=== PATIENT | male | born 1980 | race Caucasian/White ===

== ENCOUNTER 2019-01-02 01:25 | Inpatient (IN) ==
[2019-01-02] MEDS ORDERED: Ketorolac 30 MG/ML VIAL IVP ONE (04:20)
[2019-01-02] MEDS ORDERED: OXYCODONE Oral CONC 10 MG/0.5 ML ORAL.SYG SL PRN (04:44)
[2019-01-02] MEDS ORDERED: Naloxone 0.4 MG/ML INJ IVP PRN ×2 (04:44→18:57)
[2019-01-02] MEDS ORDERED: Ketorolac 30 MG/ML VIAL IVP PRN (04:44)
--- NOTE | 2019-01-02 05:04 | Internal Med History&Physical ---
Date of Encounter: 01/02/19 Time of Encounter: 05:01 Internal Medicine - H&P: HPI Chief complaint: abdominal painn Admitted From: Home Plans for Post Hospital Care: Home () History of present illness: Aaron Crockett is a 38-year-old male who reports a history of kidney stones in the past that required lithotripsy and stent placement presenting now on transfer from [facility] where he went to with 3 days of abdominal pain that was initially diffuse and subsequently localized to his lower pelvis. This was also associated with rectal tenesmus, constipation, dark urine and reduced urine output. He denied nausea, vomiting, fever or chills. At [facility] CAT scan was done which revealed a 7-8 mm left ureteral stone with concomitant moderate hydronephrosis. Lab work was grossly unremarkable and he was transferred here for further care. Past Med Surg Social Fam HX - Past Medical History Medical history: asthma, fibromyalgia, GERD Additional medical history: ulcers, crohn's disease - RLS Psychiatric history: no psych history - Past Surgical History Surgical History: non-contributory Additional surgical history: colonoscopy - kidney stones removed 5-6 times - liver bx - Social History Smoking Status: Never smoker Smokeless Tobacco Status: No Alcohol use: none Drug use: none - Family History Mother Hx Family Cardiac Disorders: Yes Father Hx Family Cardiac Disorders: Yes Internal Medicine - H&P: Meds Allergy/AdvReac Type Severity Reaction Status Date / Time aspirin [ASA] Allergy Itching Verified 06/11/15 10:23 ropinirole [From Requip] Allergy Swelling Verified 02/21/16 07:39 of Lip/Tongue/Throat All Systems PM: A 10-system review of systems was performed and is negative for pertinent findings except as documented above in the HPI. - Constitutional Vitals: Temp Pulse Resp BP Pulse Ox 97.5 F L 61 18 133/86 95 01/02/19 03:20 01/02/19 03:20 01/02/19 03:20 01/02/19 03:20 01/02/19 03:20 Exam: Vitals: Reviewed General: Obese white male lying comfortably in bed in no acute distress. Skin: Warm and supple. HEENT: Moist mucous membranes. No conjunctivae pallor. Neck: No lymphadenopathy. No JVD. No carotid bruits. No palpable thyroid. Chest: Normal thoracic expansion. Normal breath sounds. Clear to auscultation. Heart: Normal S1 & S2; rhythmic. No rubs or murmurs. Abdomen: Obese, soft and mildly to palpation in the left lower quadrant. No peritoneal reaction. Extremities: No clubbing, cyanosis or edema. No calf tenderness. Normal distal pulses. Neurological: Awake, alert and oriented to person, place and time. No focal deficits. Psych: Affect appropriate. - Assessment and Plan (1) Ureteral stone with hydronephrosis Current Visit: Yes Status: Acute Assessment and plan: Will place on IVF, provide pain control and start tamsulosin. No signs of infection present based on studies done at [facility] and his clinical presentation therefore no antibiotics at this time. Will obtain a repeat set of labs here and urine test for our evaluation. Urology consult has been requested; will keep NPO in the interim. (2) Obesity Current Visit: Yes Status: Acute Assessment and plan: Education on therapeutic lifestyle changes were given. Qualifiers: Obesity type: due to excess calories Obesity classification: adult class 2 (BMI 35 - 39.9) Serious obesity comorbidity presence: unspecified whether serious comorbidity present Body mass index: BMI 39.0-39.9 Qualified Code(s): E66.09 - Other obesity due to excess calories; Z68.39 - Body mass index (BMI) 39.0-39.9, adult (3) Asthma Current Visit: Yes Status: Acute Assessment and plan: We will place on nebulizer therapy as needed. Qualifiers: Asthma severity: moderate Asthma persistence: persistent Asthma complication type: uncomplicated Qualified Code(s): J45.40 - Moderate persistent asthma, uncomplicated (4) DVT prophylaxis Current Visit: Yes Status: Acute Assessment and plan: Ambulation for now. - Time Spent With Patient Total time spent is greater than 50% in coordination of care (as documented) at patient's floor/unit and/or counseling patient: Greater than 35 minutes
[2019-01-02 05:06] LABS: Bilirubin,Urine Negative (Negative); Blood,Urine Negative (Negative); Clarity,Urine Clear (Clear); Color,Urine Yellow (Yellow); Glucose,Urine (UA) Normal (Normal); Ketones,Urine Negative (Negative); Leukocyte Esterase,Urine Negative (Negative); Nitrite,Urine Negative (Negative); Protein,Urine Trace mg/dL (Neg-Trace); Specific Gravity,Urine > 1.030 (1.010-1.025); Urobilinogen,Urine Normal (Normal)
[2019-01-02 05:16] LABS: Bacteria,Urine None Seen per hpf (None-Few); Hyaline Casts,Urine None Seen per lpf (None-Few); Squamous Epithelial Cell,Urine Few per lpf (None-Few); WBC,Urine 0-3 per hpf (0-3)
[2019-01-02] MEDS: Ringers Solution, Lactated 1,000 ML IVC SCH (05:48)
[2019-01-02 07:17] LABS: Basophils % 0.2 %; Eosinophils # 0.2 K/mcL (0.0-0.6); Eosinophils % 2.9 %; Hematocrit 42.1 % (37.5-50.1); Hemoglobin 14.3 g/dL (12.9-16.9); Immature Granulocytes % 0.5 % (0-4); Lymphocytes # 1.5 K/mcL (0.6-4.6); Lymphocytes % 27.7 %; Mean Corpuscular Hemoglobin 32.4 pg (28.0-33.3); Mean Corpuscular Volume 95.5 fL (83.0-100.0); Mean Platelet Volume 10.7 fL (9.4-12.4); Monocytes # 0.8 K/mcL (0.0-1.3); Monocytes % 14.6 %; Platelet Count 217 K/mcL (140-400); Red Blood Count 4.41 M/mcL (4.19-5.50); Red Cell Distribution Width 12.6 % (11.5-14.5); Segmented Neutrophils % 54.1 %
[2019-01-02 07:29] LABS: Alanine Aminotransferase 14 Units/L (7-52); Albumin/Globulin Ratio 1.4 (1.1-2.2); Alkaline Phosphatase 45 Units/L (34-104); Aspartate Amino Transferase 15 Units/L (13-39); BUN/Creatinine Ratio 12 (6-26); Bilirubin,Direct 0.1 mg/dL (0.0-0.2); Bilirubin,Indirect 0.7 mg/dL (0.0-1.2); Bilirubin,Total 0.8 mg/dL (0.3-1.0); Blood Urea Nitrogen 18 mg/dL (6-20); Carbon Dioxide 25 mEq/L (23-29); Chloride 104 mEq/L (98-107); Globulin 2.9 g/dL (2.4-3.5); Glucose 89 mg/dL (70-105); Osmolality,Calculated 275 (280-300); Sodium 132 mEq/L (136-145); Total Protein 6.9 g/dL (6.4-8.9); eGFR For Non-African Americans 53 (> 60)
[2019-01-02 07:49] LABS: INR 1.1
[2019-01-02 07:52] LABS: Activated Partial Thrombo Time 31.6 Seconds (26.0-36.0)
--- NOTE | 2019-01-02 07:57 | Internal Med Progress Note ---
Hospitalist Progress Note - Encounter Date of Encounter: 01/02/19 Time of Encounter: 11:30 - Subjective Interval History: No acute events. Denies fevers/chills. Abdominal pain currently controlled. - Exam Vitals: Temp Pulse Resp BP Pulse Ox 97.7 F 62 18 134/68 93 01/02/19 06:49 01/02/19 06:49 01/02/19 06:49 01/02/19 06:49 01/02/19 06:49 Exam: General: No acute distress Skin: Warm and supple. HEENT: Moist mucous membranes. No conjunctivae pallor. Neck: No lymphadenopathy. No JVD. No carotid bruits. No palpable thyroid. Chest: Normal thoracic expansion. Normal breath sounds. Clear to auscultation. Heart: Normal S1 & S2; rhythmic. No rubs or murmurs. Abdomen: Obese, soft and mildly to palpation in the left lower quadrant. No peritoneal reaction. Extremities: No clubbing, cyanosis or edema. No calf tenderness. Normal distal pulses. - Assessment and Plan (1) Ureteral stone with hydronephrosis Current Visit: Yes Status: Acute Assessment and Plan: Continue IV fluids and Flomax No signs of infection present based on studies done at [facility] and his clinical presentation therefore no antibiotics at this time. Urology consult has been requested; will keep NPO in the interim. (2) Obesity Current Visit: Yes Status: Acute Assessment and Plan: Education on therapeutic lifestyle changes were given. (3) Asthma Current Visit: Yes Status: Acute Assessment and Plan: We will place on nebulizer therapy as needed. (4) DVT prophylaxis Current Visit: Yes Status: Acute Assessment and Plan: Ambulation for now. (5) CKD (chronic kidney disease), stage III Current Visit: Yes Status: Acute Assessment and Plan: This appears to be patient baseline since April 2018. Medications will be renally dosed and will avoid chronic NSAIDs for pain, will continue prn oxy for now. Recheck labs in AM to see if there is improvement post procedure and/or after IV fluid administration. - Time Spent with Patient Total time spent is greater than 50% in coordination of care (as documented) at patient's floor/unit and/or counseling patient: Internal Medicine: Result - Labs CBC & Chem 7: 01/02/19 06:57 01/02/19 06:57 Labs: Short CBC 01/02/19 Range/Units 06:57 WBC 5.6 (4.3-11.1) K/mcL Hgb 14.3 (12.9-16.9) g/dL Hct 42.1 (37.5-50.1) % Plt Count 217 (140-400) K/mcL Neutrophils # 3.0 (1.6-8.9) K/mcL BMP 01/02/19 06:57 Sodium 132 L Potassium 4.0 Chloride 104 Carbon Dioxide 25 BUN 18 Creatinine 1.48 H Glucose 89 Calcium 9.0 Liver Function 01/02/19 Range/Units 06:57 Total Bilirubin 0.8 (0.3-1.0) mg/dL Direct Bilirubin 0.1 (0.0-0.2) mg/dL AST 15 (13-39) Units/L ALT 14 (7-52) Units/L Alkaline Phosphatase 45 (34-104) Units/L Albumin 4.0 (3.5-5.7) g/dL Urine 01/02/19 Range/Units 04:51 Urine Color Yellow (Yellow) Urine Clarity Clear (Clear) Urine pH 6.0 (5.0-8.0) pH Units Ur Specific [place] > 1.030 H (1.010-1.025) Urine Protein Trace (Neg-Trace) mg/dL Urine Glucose (UA) Normal (Normal) mg/dL Consult Discharge Plan - Plan Referrals: Robert Rhodes DO [Primary Care Provider] - (2) Obesity Qualifiers: Obesity type: due to excess calories Obesity classification: adult class 2 (BMI 35 - 39.9) Serious obesity comorbidity presence: unspecified whether serious comorbidity present Body mass index: BMI 39.0-39.9 Qualified Code(s): E66.09 - Other obesity due to excess calories; Z68.39 - Body mass index (BMI) 39.0-39.9, adult (3) Asthma Qualifiers: Asthma severity: moderate Asthma persistence: persistent Asthma complication type: uncomplicated Qualified Code(s): J45.40 - Moderate persistent asthma, uncomplicated
--- NOTE | 2019-01-02 08:50 | Urology - Consult Note ---
<Desirae Prabhakar N - Last Filed: 01/02/19 08:47> Date of Encounter: 01/02/19 Time of Encounter: 08:00 - Assessment and Plan (1) Ureteral stone with hydronephrosis Current Visit: Yes Status: Acute Assessment and plan: Patient is a 38-year-old male who presents with the history of a 7-8 mm left ureteral stone and hydronephrosis. Discussed surgical risks and benefits with patient. Patient verbalized understanding, and consent has been signed. Patient is prepared undergo a left ureteroscopic stone extraction with holmium laser lithotripsy, basket retrieval and left ureteral stent placement. Patient will remain nothing by mouth and anticipate surgery later today with Dr. Simons. Urology CN:HPI Consult date: 01/02/19 Reason for consult Urology: Other (left ureteral stone) History of present illness: Patient is a 38-year old male who presents with a 7-8mm left ureteral stone. Patient reports a 3 day history of abdominal pain and left lower quadrant pain. Patient initially presented to [facility] and was subsequently transferred to [facility] for urologic intervention. Patient has a long-standing history of renal stones with his last stone occurring approximately 10 years ago. Patient has undergone ureteroscopy and ESWL in the past and states he has always been unsuccessful with attempting medical expulsion. Patient admits to abdominal pain being accompanied with nausea, but he denies any vomiting, fever, chills, gross hematuria, dysuria. Patient has a significant family history of renal stones through his father. Patient has undergone a CT of the abdomen and pelvis suggesting a 7-8 mm left ureteral stone. Past Med Surg Social Fam HX - Past Medical History Medical history: asthma, fibromyalgia, GERD Additional medical history: ulcers, crohn's disease - RLS Psychiatric history: no psych history - Past Surgical History Surgical History: non-contributory Additional surgical history: colonoscopy - kidney stones removed 5-6 times - liver bx - Social History Smoking Status: Never smoker Smokeless Tobacco Status: No Alcohol use: none Drug use: none - Family History Mother Hx Family Cardiac Disorders: Yes Father Hx Family Cardiac Disorders: Yes Medications and Allergies Allergy/AdvReac Type Severity Reaction Status Date / Time aspirin [ASA] Allergy Itching Verified 06/11/15 10:23 ropinirole [From Requip] Allergy Swelling Verified 02/21/16 07:39 of Lip/Tongue/Throat Review of Systems - Constitutional no chills, no fatigue, no fever(s) - EENT Nose, mouth and throat: no dizziness, no headache(s) - Cardiovascular no chest pain, no diaphoresis, no dyspnea - Respiratory no cough, no dyspnea - Gastrointestinal nausea, no abdominal pain, no vomiting - Genitourinary flank pain, no change in urinary stream, no difficulty urinating, no dysuria, no hematuria, no urinary frequency, no urinary hesitancy, no urinary incontinence, no urinary urgency - Musculoskeletal back pain, no muscle weakness - Integumentary no erythema, no rash, no swelling - Neurological no confusion, no syncope - Psychiatric no anxiety, no confusion - Hematologic/Lymphatic no easy bleeding, no easy bruising - Allergic/Immunologic no throat swelling, no wheezing Exam Initial Vital Signs Temp Pulse Resp BP Pulse Ox 97.5 F L 61 18 133/86 95 01/02/19 03:20 01/02/19 03:20 01/02/19 03:20 01/02/19 03:20 01/02/19 03:20 - General physical appearance Present: well developed, no distress, no pain - Eyes Present: PERRL, normal ocular movement - ENT Present: normal nares, no congestion - Neck Present: no masses, trachea midline - Abdomen Abdomen: Present: soft, non tender - Integumentary Present: no rash, no abnormal pigmentation - Neurologic Present: normal coordination Urology Results - Labs 01/02/19 06:57 01/02/19 06:57 Abnormal lab results Sodium 132 mEq/L (136-145) L 01/02/19 06:57 Creatinine 1.48 mg/dL (0.70-1.30) H 01/02/19 06:57 Est GFR (Non-Af Amer) 53 (> 60) L 01/02/19 06:57 Calculated Osmolality 275 (280-300) L 01/02/19 06:57 Ur Specific [place] > 1.030 (1.010-1.025) H 01/02/19 04:51 Urine Microscopic RBC 3-5 per hpf (0-3) H 01/02/19 04:51 Diabetes panel 01/02/19 Range/Units 06:57 Sodium 132 L (136-145) mEq/L Potassium 4.0 (3.5-5.1) mEq/L Chloride 104 (98-107) mEq/L Carbon Dioxide 25 (23-29) mEq/L BUN 18 (6-20) mg/dL Creatinine 1.48 H (0.70-1.30) mg/dL Glucose 89 (70-105) mg/dL Calcium 9.0 (8.6-10.3) mg/dL AST 15 (13-39) Units/L ALT 14 (7-52) Units/L Alkaline Phosphatase 45 (34-104) Units/L Albumin 4.0 (3.5-5.7) g/dL Calcium panel 01/02/19 Range/Units 06:57 Calcium 9.0 (8.6-10.3) mg/dL Albumin 4.0 (3.5-5.7) g/dL Pituitary panel 01/02/19 Range/Units 06:57 Sodium 132 L (136-145) mEq/L Potassium 4.0 (3.5-5.1) mEq/L Chloride 104 (98-107) mEq/L Carbon Dioxide 25 (23-29) mEq/L BUN 18 (6-20) mg/dL Creatinine 1.48 H (0.70-1.30) mg/dL Glucose 89 (70-105) mg/dL Calcium 9.0 (8.6-10.3) mg/dL Adrenal panel 01/02/19 Range/Units 06:57 Sodium 132 L (136-145) mEq/L Potassium 4.0 (3.5-5.1) mEq/L Chloride 104 (98-107) mEq/L Carbon Dioxide 25 (23-29) mEq/L BUN 18 (6-20) mg/dL Creatinine 1.48 H (0.70-1.30) mg/dL Glucose 89 (70-105) mg/dL Calcium 9.0 (8.6-10.3) mg/dL Total Bilirubin 0.8 (0.3-1.0) mg/dL AST 15 (13-39) Units/L ALT 14 (7-52) Units/L Alkaline Phosphatase 45 (34-104) Units/L Albumin 4.0 (3.5-5.7) g/dL All other labs normal. - Imaging CT scan - abdomen: report reviewed CT scan - pelvis: report reviewed Consult Discharge Plan - Plan Referrals: Robert Rhodes DO [Primary Care Provider] - <Jose Simons - Last Filed: 01/02/19 15:48> Date of Encounter: 01/02/19 Urology CN:GAURI History of present illness: patient seen and examined independently. plan of proceeding with left ureteroscopy and stone extraction. Exam Initial Vital Signs Temp Pulse Resp BP Pulse Ox 97.5 F L 61 18 133/86 95 01/02/19 03:20 01/02/19 03:20 01/02/19 03:20 01/02/19 03:20 01/02/19 03:20 Urology Results - Labs 01/02/19 06:57 01/02/19 06:57 Abnormal lab results Sodium 132 mEq/L (136-145) L 01/02/19 06:57 Creatinine 1.48 mg/dL (0.70-1.30) H 01/02/19 06:57 Est GFR (Non-Af Amer) 53 (> 60) L 01/02/19 06:57 Calculated Osmolality 275 (280-300) L 01/02/19 06:57 Ur Specific [place] > 1.030 (1.010-1.025) H 01/02/19 04:51 Urine Microscopic RBC 3-5 per hpf (0-3) H 01/02/19 04:51 Diabetes panel 01/02/19 Range/Units 06:57 Sodium 132 L (136-145) mEq/L Potassium 4.0 (3.5-5.1) mEq/L Chloride 104 (98-107) mEq/L Carbon Dioxide 25 (23-29) mEq/L BUN 18 (6-20) mg/dL Creatinine 1.48 H (0.70-1.30) mg/dL Glucose 89 (70-105) mg/dL Calcium 9.0 (8.6-10.3) mg/dL AST 15 (13-39) Units/L ALT 14 (7-52) Units/L Alkaline Phosphatase 45 (34-104) Units/L Albumin 4.0 (3.5-5.7) g/dL Calcium panel 01/02/19 Range/Units 06:57 Calcium 9.0 (8.6-10.3) mg/dL Albumin 4.0 (3.5-5.7) g/dL Pituitary panel 01/02/19 Range/Units 06:57 Sodium 132 L (136-145) mEq/L Potassium 4.0 (3.5-5.1) mEq/L Chloride 104 (98-107) mEq/L Carbon Dioxide 25 (23-29) mEq/L BUN 18 (6-20) mg/dL Creatinine 1.48 H (0.70-1.30) mg/dL Glucose 89 (70-105) mg/dL Calcium 9.0 (8.6-10.3) mg/dL Adrenal panel 01/02/19 Range/Units 06:57 Sodium 132 L (136-145) mEq/L Potassium 4.0 (3.5-5.1) mEq/L Chloride 104 (98-107) mEq/L Carbon Dioxide 25 (23-29) mEq/L BUN 18 (6-20) mg/dL Creatinine 1.48 H (0.70-1.30) mg/dL Glucose 89 (70-105) mg/dL Calcium 9.0 (8.6-10.3) mg/dL Total Bilirubin 0.8 (0.3-1.0) mg/dL AST 15 (13-39) Units/L ALT 14 (7-52) Units/L Alkaline Phosphatase 45 (34-104) Units/L Albumin 4.0 (3.5-5.7) g/dL All other labs normal.
--- NOTE | 2019-01-02 15:36 | Anesthesia Evaluation PreOp ---
Date of Encounter: 01/02/19 Time of Encounter: 15:33 - Past History Planned Operation: Left Ureteroscopic Stone Extraction Cardiac History: Hyperlipidemia Pulmonary History: Asthma BIOINFORMATICS SCIENTIST History: Other (fibromyalgia, RLS) Other Medical History: GERD (Crohn's disease) Anesthesia History: No Prior Anesthetic Complications, Past Anesthesia Alcohol Use: none Drug use: none Medications and Allergies Allergy/AdvReac Type Severity Reaction Status Date / Time aspirin [ASA] Allergy Itching Verified 06/11/15 10:23 ropinirole [From Requip] Allergy Swelling Verified 02/21/16 07:39 of Lip/Tongue/Throat - Meds/Allergy Pre-op Review Medications Reviewed: Yes Allergies Reviewed: Yes Beta Blockers on Current Med List: No Anesthesia Results - Labs 01/02/19 06:57 01/02/19 06:57 - Imaging EKG: report reviewed (01/24/2017 SINUS RHYTHM) Anesthesia Exam Vital Signs/O2 Sat, Most Current Temp Pulse Resp BP Pulse Ox 97.7 F 59 16 126/69 91 01/02/19 12:46 01/02/19 12:46 01/02/19 12:46 01/02/19 12:46 01/02/19 12:46 Height: 5'9''/1.75m Weight: 270 lbs/122.5 kg NPO (# of Hours): 8 Pain Scale: 0 - HEENT Pupil (Motor): EOMI Mallampati: II Teeth: Normal, Missing Oral Opening: Greater than 3 - BIOINFORMATICS SCIENTIST LOC: Oriented BIOINFORMATICS SCIENTIST Motor: Normal RUE, Normal LUE, Normal RLE, Normal LLE, Normal Face BIOINFORMATICS SCIENTIST Sensory: Normal: RUE, LUE, RLE, LLE, Face - Cardiac Rhythm: Regular Murmur: None - Pulmonary Breath Sounds: bilateral Clear Respiratory Effort: Symmetrical Anesthesia Assess/Plan ASA Score: 3 Level of consciousness: Cooperative, Oriented, Tranquil Anesthetic Plan: General Monitoring Plan: Standard Monitors Recovery Plan: PACU
[2019-01-02] MEDS ORDERED: *HR* Midazolam HCl 2 MG/2 ML VIAL ONE (15:41)
[2019-01-02] MEDS ORDERED: *HR* FentaNYL (PF) 100 MCG/2 ML VIAL ONE (15:41)
[2019-01-02] MEDS ORDERED: *HR* Propofol 200 MG/20 ML VIAL IVP ONE (15:41)
[2019-01-02] MEDS ORDERED: Lidocaine -MPF 2% 2 ML VIAL ONE (15:43)
[2019-01-02] MEDS ORDERED: CeFAZolin Syr 2,000MG/20 ML 2,000 MG/20 ML SYRINGE IVPB ONE (15:46)
[2019-01-02] MEDS ORDERED: Albuterol 2.5 MG/3 ML NEBULIZER IH ONE (15:50)
[2019-01-02] MEDS ORDERED: Albuterol 2.5 MG/3 ML NEBULIZER ONE (15:51)
[2019-01-02] MEDS ORDERED: *HR* HYDROmorphone (PF) 1 MG/ML SYRINGE IVP PRN (15:56)
[2019-01-02] MEDS ORDERED: CeFAZolin Syr 3,000MG/30 ML 3,000 MG/30 ML SYRINGE IVPB ONE (15:57)
[2019-01-02] MEDS ORDERED: Dexamethasone 4 MG/ML VIAL ONE (16:16)
[2019-01-02] MEDS ORDERED: Ondansetron 4 MG/2 ML VIAL ONE (16:16)
--- NOTE | 2019-01-02 16:37 | Operative Note ---
Date of procedure: 01/02/19 Pre-op diagnosis: left ureteral stone Post-op diagnosis: same Procedure: Left ureteroscopic laser lithotripsy of stone, left ureteroscopic basket retrieval stone fragment, left 4.8 x 26 centimeter ureteral stent placement Anesthesia: GISELLEA Surgeon: Jose Simons Was there an administration assistant present: No Estimated blood loss (cc): 0 Specimen: none Condition: stable Disposition: PACU Procedure in Detail: Patient was prepped and draped in normal sterile fashion. Timeout procedure performed. I then inserted the semirigid ureteroscope into the patient's bladder. I was able to cannulate the left ureteral orifice immediately encountered the distal left 7 mm stone. I then using holmium laser fragment the stone. All stone fragments were then removed and the patient's ureter using a basket device. At this point I then placed a sensor wire into the left kidney and placed a 4.8 x 26 cm stent with good curl seen in the left kidney and in the bladder. A string was left for easy removal in 2-3 days.
[2019-01-02] MEDS ORDERED: *HR* OxyCODONE Immed Rel 5 MG TABLET PO ONE ×2 (17:20→17:30)
--- NOTE | 2019-01-02 17:21 | Anesthesia Evaluation Post Op ---
Date of Encounter: 01/02/19 Time of Encounter: 17:22 - Discharge PostOp Status: Transfer Patient to floor (Patient's vital signs have been reviewed. Patient is stable postoperatively and has adequately recovered from anesthesia. Patient is determined to have stable airway patency and respiratory function including respiratory rate and oxygen saturation. Patient has a stable heart rate, blood pressure and adequate hydration. Patients mental status is acceptable. Patients temperature is appropriate. Pain and nausea are adequately controlled.)
[2019-01-02] MEDS ORDERED: Ringers Solution, Lactated 1,000 ML IVC SCH (18:57)
[2019-01-02] MEDS: OXYCODONE Oral CONC 10 MG/0.5 ML ORAL.SYG SL PRN (20:03)
[2019-01-03] MEDS: Ringers Solution, Lactated 1,000 ML IVC SCH (00:55)
[2019-01-03] MEDS: OXYCODONE Oral CONC 10 MG/0.5 ML ORAL.SYG SL PRN ×3 (01:57→12:17)
[2019-01-03 08:44] LABS: BUN/Creatinine Ratio 13 (6-26); Blood Urea Nitrogen 19 mg/dL (6-20); Calcium 9.2 mg/dL (8.6-10.3); Carbon Dioxide 25 mEq/L (23-29); Chloride 104 mEq/L (98-107); Glucose 128 mg/dL (70-105); Osmolality,Calculated 270 (280-300); Potassium 4.3 mEq/L (3.5-5.1); Sodium 128 mEq/L (136-145); eGFR For Non-African Americans 54 (> 60)
--- NOTE | 2019-01-03 08:53 | Discharge Summary ---
<Darryl Vera - Last Filed: 01/03/19 08:49> - NOTES TO OUTPATIENT PROVIDER Notes to Outpatient Provider: patient told not to take calcium supplements. avoid NSAIDS. Follow up with urology Orders not resulted at time of discharge: Pending orders 01/02/19 XR KUB [XR] Routine 01/02/19 04:51 Culture,Urine [RM] Stat 01/02/19 06:50 Culture,Blood [BC] Routine Date of Encounter: 01/03/19 Time of Encounter: 08:49 - Discharge Diagnosis (1) Ureteral stone with hydronephrosis Priority: Primary Status: Ruled-out (2) Obesity Priority: Secondary Status: Acute Qualifiers: Obesity type: due to excess calories Obesity classification: adult class 2 (BMI 35 - 39.9) Serious obesity comorbidity presence: unspecified whether serious comorbidity present Body mass index: BMI 39.0-39.9 Qualified Code(s): E66.09 - Other obesity due to excess calories; Z68.39 - Body mass index (BMI) 39.0-39.9, adult (3) DVT prophylaxis Priority: Secondary Status: Acute (4) CKD (chronic kidney disease), stage III Priority: Secondary Status: Chronic Hospital course: Mr. Crockett is a 38 year old male presetned with cc of abdominal pain. Patient was found to have 7-8mm left ureteral stone with moderate hydronephrosis on Ct scan. urology was consulted and he underwent left ureteroscopic extraction with stent placement. he did not have any complications from procedure. This morning he is ambulating independently, tolerating his diet. Patient will follow up with pcp and urology. Discharge discussed with: patient, family - Time Spent with Patient Total time spent providing and/or coordinating discharge services: - Discharge Medications Prescriptions: Continue RX: Albuterol Neb [Proventil Neb] 2.5 mg IH Q4HR PRN PRN Reason: Shortness Of Breath RX: Albuterol Sulfate [Ventolin Hfa] 2 puff IH Q4H PRN PRN Reason: Shortness Of Breath RX: Azathioprine [Imuran] 150 mg PO DAILY RX: Cetirizine HCl 10 mg PO DAILY RX: Ferrous Sulfate 325 mg PO BID RX: Fluticasone Propionate Nasal [Flonase] 1 spr NS DAILY RX: Fluticasone/Vilanterol [Breo Ellipta 200-25 Mcg INH] 1 puff IH DAILY RX: Gabapentin [Neurontin] 400 mg PO BID RX: Montelukast [Singulair] 10 mg PO HS RX: Omeprazole [PriLOSEC] 40 mg PO BID Home Medications: RX: Albuterol Neb [Proventil Neb] 2.5 mg IH Q4HR PRN 01/02/19 [History] RX: Albuterol Sulfate [Ventolin Hfa] 2 puff IH Q4H PRN 01/02/19 [History] RX: Azathioprine [Imuran] 150 mg PO DAILY 01/02/19 [History] RX: Cetirizine HCl 10 mg PO DAILY 01/02/19 [History] RX: Ferrous Sulfate 325 mg PO BID 01/02/19 [History] RX: Fluticasone Propionate Nasal [Flonase] 1 spr NS DAILY 01/02/19 [History] RX: Fluticasone/Vilanterol [Breo Ellipta 200-25 Mcg INH] 1 puff IH DAILY 01/02/19 [History] RX: Gabapentin [Neurontin] 400 mg PO BID 01/02/19 [History] RX: Montelukast [Singulair] 10 mg PO HS 01/02/19 [History] RX: Omeprazole [PriLOSEC] 40 mg PO BID 01/02/19 [History] Allergies/Adverse Reactions: Allergy/AdvReac Type Severity Reaction Status Date / Time aspirin [ASA] Allergy Hives Verified 01/02/19 19:43 ropinirole [From Requip] Allergy Swelling Verified 01/02/19 19:43 of Lip/Tongue/Throat Date of admission: 01/02/19 03:54 Primary care physician: Robert Rhodes DO Consults: 01/02/19 03:35 Consult to Pastoral Services [CONS] Routine Comment: 01/02/19 03:56 Consult to Urology [CONS] Routine Consulting Provider: Urology Shobha Reason for Consult: 38 yo M referred from [facility] for abdominal pain and found to have a left 7mm ureteral stent with resultant moderate hydronephrosis Call Completed: Yes Discharging clinician: Darryl Vera Anticipated date of discharge: 01/03/19 - Constitutional Vitals: Temp Pulse Resp BP Pulse Ox 97.7 F 76 17 136/84 96 01/03/19 07:13 01/03/19 07:13 01/03/19 07:13 01/03/19 07:13 01/03/19 07:13 Exam: General: pleasant, without distress Cardiovascualr: Regular rate and rhythm with no murmur, absent gallops or rubs, absent pedal edema, radial pulses 2 out of 4 Lungs: Clear to auscultation bilaterally, not in respiratory distress Abdomen: Soft nontender, nondistended positive bowel sounds, absent hepatomegaly Skin: warm and dry, absent rash, absent open wounds and nodules MSK: absent clubbing, cyanosis, joints without swelling Neuro: Alert to self, place not time. no focal deficits. Psych: good insight and judgment - Patient Status Disposition: Home, Self-Care Condition: Good Functional capacity at discharge: independent ambulation Overall status at discharge: patient is progressing back to baseline - Discharge Instructions Instructions: Kidney Stones (DC), Ureteroscopy (DC), Urethral Stent Placement (DC) Follow Up With: Robert Rhodes DO [Primary Care Provider] - - Diet and Activity Activity: increase activity as tolerated Diet: advance to your usual diet <Stefano Olivares - Last Filed: 01/03/19 18:30> Orders not resulted at time of discharge: Pending orders 01/02/19 XR KUB [XR] Routine 01/02/19 04:51 Culture,Urine [RM] Stat 01/02/19 06:50 Culture,Blood [BC] Routine Date of Encounter: 01/03/19 - Discharge Diagnosis (1) Ureteral stone with hydronephrosis Status: Ruled-out (2) Obesity Status: Acute Qualifiers: Obesity type: due to excess calories Obesity classification: adult class 2 (BMI 35 - 39.9) Serious obesity comorbidity presence: unspecified whether serious comorbidity present Body mass index: BMI 39.0-39.9 Qualified Code(s): E66.09 - Other obesity due to excess calories; Z68.39 - Body mass index (BMI) 39.0-39.9, adult (3) Asthma Status: Acute Qualifiers: Asthma severity: moderate Asthma persistence: persistent Asthma complication type: uncomplicated Qualified Code(s): J45.40 - Moderate persistent asthma, uncomplicated (4) DVT prophylaxis Status: Acute (5) CKD (chronic kidney disease), stage III Status: Chronic Hospital course: Mr. Crockett is a 38 year old male - Time Spent with Patient Total time spent providing and/or coordinating discharge services: Date of admission: 01/02/19 03:54 Primary care physician: Robert Rhodes DO Consults: 01/02/19 03:35 Consult to Pastoral Services [CONS] Routine Comment: 01/02/19 03:56 Consult to Urology [CONS] Routine Consulting Provider: Urology Shobha Reason for Consult: 38 yo M referred from [facility] for abdominal pain and found to have a left 7mm ureteral stent with resultant moderate hydronephrosis Call Completed: Yes - Constitutional Vitals: Temp Pulse Resp BP Pulse Ox 97.8 F 62 17 121/77 92 01/03/19 10:58 01/03/19 10:58 01/03/19 10:58 01/03/19 10:58 01/03/19 10:58 - Attending Attestation I examined this patient and my medical decision-making was reviewed with the Resident Physician. I agree with the documented findings, disposition and treatment plan as described except to the extent set forth below.
--- NOTE | 2019-01-03 09:18 | Urology Progress Note ---
Date of Encounter: 01/03/19 Time of Encounter: 09:13 - Assessment and Plan (1) Ureteral stone with hydronephrosis Current Visit: Yes Status: Ruled-out Assessment and plan: Status post removal. Patient will remove stent in 2-3 days. Patient will follow up with urology in 2-3 weeks. We will mail the patient his appt. Progress Note Narrative: pod 1 from cystoscopy and left uteroscopic stone extraction. Patient feeling much better. Patient with ureteral stent in place. Objective Initial Vital Signs Temp Pulse Resp BP Pulse Ox 97.5 F L 61 18 133/86 95 01/02/19 03:20 01/02/19 03:20 01/02/19 03:20 01/02/19 03:20 01/02/19 03:20 - General physical appearance Present: well developed, well nourished - Abdomen Present: soft. Absent: tender - Labs 01/02/19 06:57 01/03/19 08:13 Diabetes panel 01/03/19 Range/Units 08:13 Sodium 128 L (136-145) mEq/L Potassium 4.3 (3.5-5.1) mEq/L Chloride 104 (98-107) mEq/L Carbon Dioxide 25 (23-29) mEq/L BUN 19 (6-20) mg/dL Creatinine 1.45 H (0.70-1.30) mg/dL Glucose 128 H (70-105) mg/dL Calcium 9.2 (8.6-10.3) mg/dL Calcium panel 01/03/19 Range/Units 08:13 Calcium 9.2 (8.6-10.3) mg/dL Pituitary panel 01/03/19 Range/Units 08:13 Sodium 128 L (136-145) mEq/L Potassium 4.3 (3.5-5.1) mEq/L Chloride 104 (98-107) mEq/L Carbon Dioxide 25 (23-29) mEq/L BUN 19 (6-20) mg/dL Creatinine 1.45 H (0.70-1.30) mg/dL Glucose 128 H (70-105) mg/dL Calcium 9.2 (8.6-10.3) mg/dL Adrenal panel 01/03/19 Range/Units 08:13 Sodium 128 L (136-145) mEq/L Potassium 4.3 (3.5-5.1) mEq/L Chloride 104 (98-107) mEq/L Carbon Dioxide 25 (23-29) mEq/L BUN 19 (6-20) mg/dL Creatinine 1.45 H (0.70-1.30) mg/dL Glucose 128 H (70-105) mg/dL Calcium 9.2 (8.6-10.3) mg/dL Consult Discharge Plan - Plan Instructions: Kidney Stones (DC), Ureteroscopy (DC), Urethral Stent Placement (DC) Referrals: Robert Rhodes DO [Primary Care Provider] -
[2019-01-03] MEDS ORDERED: 0.9 % Sodium Chloride 1,000 ML IVC ONE (10:36)
[2019-01-03 10:59] VITALS: BP 121/77
== END 2019-01-03 16:28 | disposition home or self-care (01) | DRG 446 ==
LOC: 2SOUTHHOLD → SUATTDRO 03:54 → 2SOUTHHOLD 20:04
PROVIDERS: ADMIT Internal Medicine; ATTEND Student in an Organized Health Care Education/Training Program

== ENCOUNTER 2022-01-15 21:37 | Inpatient (IN) ==
[2022-01-16] MEDS ORDERED: Perflutren Lipid Microsphere 1.3 ML in 0.9 % Sodium Chloride 8.7 ML IVP PRN ×2 (02:10→20:35)
[2022-01-16] MEDS ORDERED: *HR* Heparin 5,000 UNIT/ML VIAL IVP PRN ×4 (02:11→20:35)
[2022-01-16] MEDS ORDERED: Morphine Sulfate 2 MG/ML SYRINGE IVP PRN ×2 (02:14→20:35)
[2022-01-16] MEDS ORDERED: Nitroglycerin 0.4 MG TAB.SUBL SL PRN ×2 (02:14→20:35)
[2022-01-16] MEDS ORDERED: Heparin 25,000UNIT/250ML 1/2NS 25,000 UNIT/250 ML IV.SOLN IVC SCH (02:15)
[2022-01-16] MEDS ORDERED: Ondansetron 4 MG/2 ML VIAL IVP PRN ×2 (02:16→20:35)
[2022-01-16] MEDS ORDERED: Naloxone 0.4 MG/ML INJ IVP PRN ×2 (02:16→20:35)
[2022-01-16] MEDS ORDERED: Acetaminophen 325 MG TABLET PO PRN ×2 (02:16→20:35)
[2022-01-16] MEDS ORDERED: D5% in Water 1,000 ML IVC PRN ×2 (02:17→20:35)
[2022-01-16] MEDS ORDERED: Dextrose 4 GM Chewable Tablets PO PRN ×4 (02:17→20:35)
[2022-01-16] MEDS ORDERED: *HR* Dextrose 50 % in Water (Syg) 50 ML SYRINGE IVP PRN ×2 (02:17→20:35)
[2022-01-16 02:29] LABS: Basophils % 0.4 %; Eosinophils # 0.1 K/mcL (0.0-0.6); Eosinophils % 0.9 %; Hematocrit 45.3 % (37.5-50.1); Hemoglobin 16.1 g/dL (12.9-16.9); Immature Granulocytes % 0.4 % (0-4); Lymphocytes # 2.8 K/mcL (0.6-4.6); Lymphocytes % 30.5 %; Mean Corpuscular HGB Conc 35.5 g/dL (31.6-35.5); Mean Corpuscular Hemoglobin 33.5 pg (28.0-33.3); Mean Corpuscular Volume 94.4 fL (83.0-100.0); Mean Platelet Volume 10.5 fL (9.4-12.4); Monocytes # 1.3 K/mcL (0.0-1.3); Monocytes % 14.2 %; Neutrophils # 4.9 K/mcL (1.6-8.9); Platelet Count 237 K/mcL (140-400); Red Cell Distribution Width 12.9 % (11.5-14.5); Segmented Neutrophils % 53.6 %; White Blood Count 9.2 K/mcL (4.3-11.1)
[2022-01-16] MEDS ORDERED: NON-FORMULARY MEDICATION 1 EACH EACH (Albuterol Sulfate 18 GM Hfa.Aer.Ad) IH PRN (02:29)
[2022-01-16] MEDS ORDERED: Albuterol 2.5 MG/3 ML NEBULIZER IH PRN ×2 (02:29→20:35)
[2022-01-16 02:54] LABS: Albumin 4.3 g/dL (3.5-5.7); Albumin/Globulin Ratio 1.4 (1.1-2.2); Bilirubin,Total 0.6 mg/dL (0.3-1.0); Calcium 9.3 mg/dL (8.6-10.3); Magnesium 1.7 mg/dL (1.6-2.6); Potassium 3.5 mEq/L (3.5-5.1); Total Protein 7.3 g/dL (6.4-8.9); Troponin I 0.88 ng/mL (< 0.04)
[2022-01-16 03:07] LABS: Folate 8.2 ng/mL (3.0-16.0)
[2022-01-16 03:14] LABS: Thyroid Stimulating Hormone 1.831 mcIU/mL (0.340-5.600)
[2022-01-16 04:35] LABS: INR 1.1; Prothrombin Time 12.4 Seconds (9.4-12.1)
[2022-01-16 04:38] LABS: Activated Partial Thrombo Time 34.1 Seconds (26.0-36.0)
[2022-01-16 05:10] LABS: Estimated Average Glucose 105 mg/dl; Hemoglobin A1C 5.3 %
[2022-01-16] MEDS: Sucralfate 1 GM TABLET PO SCH ×3 (08:52→21:02)
[2022-01-16] MEDS ORDERED: Fluticasone Propionate Nasal 50 MCG/SPRAY BOTTLE NS SCH (09:00)
[2022-01-16] MEDS ORDERED: Loratadine 10 MG TABLET PO SCH (09:00)
[2022-01-16] MEDS ORDERED: hydroCHLOROthiazide 25 MG TABLET PO SCH (09:00)
[2022-01-16 09:28] LABS: Bilirubin,Urine Negative (Negative); Blood,Urine Negative (Negative); Clarity,Urine Clear (Clear); Color,Urine Light-Yellow (Yellow); Glucose,Urine (UA) Normal (Normal); Ketones,Urine Negative (Negative); Leukocyte Esterase,Urine Negative (Negative); Nitrite,Urine Negative (Negative); PH,Urine 5.5 pH Units (5.0-8.0); Protein,Urine Trace mg/dL (Neg-Trace); Specific Gravity,Urine 1.024 (1.010-1.025); Urobilinogen,Urine Normal (Normal)
[2022-01-16] MEDS ORDERED: Budesonide/Formoterol 160/4.5 1 PUFF INH IH SCH (10:00)
[2022-01-16] MEDS ORDERED: EPINEPHrine 1 MG/ML VIAL IV PRN (10:58)
[2022-01-16] MEDS ORDERED: Aspirin desensitization 1 mg/ml PO ONE ×3 (13:00)
[2022-01-16] MEDS ORDERED: Aspirin 81 MG TAB.CHEW PO ONE (13:00)
[2022-01-16] MEDS ORDERED: EPINEPHrine 1 MG/ML VIAL IM PRN ×2 (13:00→20:35)
[2022-01-16] MEDS ORDERED: Famotidine 20 MG/2 ML VIAL IVP PRN ×2 (13:00→20:35)
[2022-01-16] MEDS ORDERED: Aspirin desensitization 4 mg/ml PO ONE ×4 (13:00)
[2022-01-16] MEDS ORDERED: methylPREDNISolone 125 MG/2 ML VIAL IVP PRN ×2 (13:00→20:35)
[2022-01-16] MEDS ORDERED: Gabapentin 400 MG CAPSULE PO SCH (18:00)
[2022-01-16] MEDS ORDERED: Famotidine 20 MG TABLET PO SCH (21:00)
[2022-01-16] MEDS: Heparin 25,000UNIT/250ML 1/2NS 25,000 UNIT/250 ML IV.SOLN IVC SCH (21:35)
[2022-01-17 03:18] LABS: Hematocrit 46.7 % (37.5-50.1); Hemoglobin 16.4 g/dL (12.9-16.9); Mean Corpuscular HGB Conc 35.1 g/dL (31.6-35.5); Mean Corpuscular Hemoglobin 33.1 pg (28.0-33.3); Mean Corpuscular Volume 94.3 fL (83.0-100.0); Mean Platelet Volume 10.2 fL (9.4-12.4); Platelet Count 253 K/mcL (140-400); Red Blood Count 4.95 M/mcL (4.19-5.50); Red Cell Distribution Width 12.7 % (11.5-14.5)
[2022-01-17 07:51] LABS: BUN/Creatinine Ratio 20 (6-26); Blood Urea Nitrogen 30 mg/dL (6-20); Calcium 9.4 mg/dL (8.6-10.3); Carbon Dioxide 24 mEq/L (23-29); Chloride 98 mEq/L (98-107); Chol/HDL Ratio 5.4 (0-4.9); Cholesterol 233 mg/dL (< 200); Glucose 103 mg/dL (70-105); HDL Cholesterol 43 mg/dL (40-59); LDL Cholesterol,Calculated 142 mg/dL (< 100); Osmolality,Calculated 280 (280-300); Potassium 3.4 mEq/L (3.5-5.1); Sodium 132 mEq/L (136-145); Triglycerides 242 mg/dL (< 150); eGFR For African Americans > 60 (> 60); eGFR For Non-African Americans 51 (> 60)
[2022-01-17] MEDS ORDERED: Aspirin desensitization 4 mg/ml PO ONE ×8 (08:00)
[2022-01-17] MEDS ORDERED: Aspirin 81 MG TAB.CHEW PO ONE ×2 (08:00)
[2022-01-17] MEDS ORDERED: Aspirin desensitization 1 mg/ml PO ONE ×6 (08:00)
[2022-01-17] MEDS ORDERED: Metoprolol XL (24 HR) Succ 25 MG TAB.ER.24H PO SCH ×2 (09:00)
[2022-01-17] MEDS ORDERED: Gabapentin 400 MG CAPSULE PO SCH (09:00)
[2022-01-17] MEDS: Loratadine 10 MG TABLET PO SCH (10:01)
[2022-01-17] MEDS: Sucralfate 1 GM TABLET PO SCH ×2 (10:01→20:50)
[2022-01-17] MEDS: hydroCHLOROthiazide 25 MG TABLET PO SCH (10:01)
[2022-01-17] MEDS ORDERED: amLODIPine 5 MG TABLET PO SCH (10:15)
[2022-01-17] MEDS: Budesonide/Formoterol 160/4.5 1 PUFF INH IH SCH (10:32)
[2022-01-17] MEDS: Fluticasone Propionate Nasal 50 MCG/SPRAY BOTTLE NS SCH (11:55)
[2022-01-17] MEDS ORDERED: *HR* FentaNYL (PF) 100 MCG/2 ML VIAL ONE (11:58)
[2022-01-17] MEDS ORDERED: *HR* Midazolam HCl 2 MG/2 ML VIAL ONE (11:58)
[2022-01-17] MEDS ORDERED: *HR* Heparin 10,000 UNIT/10 ML VIAL ONE (11:59)
[2022-01-17] MEDS ORDERED: Heparin 1,000 UNITS/500 mL 500 ML ONE (11:59)
[2022-01-17] MEDS ORDERED: Nitroglycerin 1,000 MCG/5 ML VIAL IV ONE (11:59)
[2022-01-17] MEDS ORDERED: ISOVUE-370 200 ML INFUS..BTL ONE (11:59)
[2022-01-17] MEDS ORDERED: 0.9 % Sodium Chloride 1,000 ML ONE ×2 (11:59→12:06)
[2022-01-17] MEDS: Heparin 25,000UNIT/250ML 1/2NS 25,000 UNIT/250 ML IV.SOLN IVC SCH (12:43)
[2022-01-18 01:50] LABS: Hemoglobin 15.9 g/dL (12.9-16.9)
[2022-01-18 02:09] LABS: BUN/Creatinine Ratio 19 (6-26); Blood Urea Nitrogen 28 mg/dL (6-20); Calcium 9.4 mg/dL (8.6-10.3); Carbon Dioxide 22 mEq/L (23-29); Chloride 98 mEq/L (98-107); Glucose 87 mg/dL (70-105); Magnesium 1.8 mg/dL (1.6-2.6); Osmolality,Calculated 279 (280-300); Phosphorous 3.8 mg/dL (2.7-4.5); Potassium 3.8 mEq/L (3.5-5.1); Sodium 132 mEq/L (136-145); eGFR For African Americans > 60 (> 60); eGFR For Non-African Americans 53 (> 60)
[2022-01-18] MEDS: Budesonide/Formoterol 160/4.5 1 PUFF INH IH SCH (08:13)
[2022-01-18] MEDS: hydroCHLOROthiazide 25 MG TABLET PO SCH (08:47)
[2022-01-18] MEDS: Sucralfate 1 GM TABLET PO SCH (08:47)
[2022-01-18] MEDS: Loratadine 10 MG TABLET PO SCH (08:47)
[2022-01-18] MEDS: Fluticasone Propionate Nasal 50 MCG/SPRAY BOTTLE NS SCH (08:48)
[2022-01-18] MEDS ORDERED: amLODIPine 5 MG TABLET PO SCH (09:00)
[2022-01-18] MEDS ORDERED: Metoprolol XL (24 HR) Succ 25 MG TAB.ER.24H PO SCH (09:00)
[2022-01-18] MEDS ORDERED: Aspirin Enteric Coated 81 MG Tablet PO SCH (09:00)
[2022-01-18] MEDS ORDERED: hydrALAZINE 25 MG TABLET PO SCH (10:40)
[2022-01-18 11:24] VITALS: PULSE 127; TEMP 97.6; O2SAT 98
[2022-01-18 13:18] VITALS: BP 148/95
== END 2022-01-18 14:00 | disposition home or self-care (01) | DRG 190 ==
LOC: 2ANU → SUATTDRO 01-16 00:55 → ICNU 01-16 20:25 → 3NENU 01-17 13:26
PROVIDERS: ADMIT Internal Medicine; ATTEND Internal Medicine